=== PATIENT | male | born 1975 | race Caucasian/White ===

== ENCOUNTER 2021-07-17 10:43 | Emergency (ER) | payer OTHER ==
--- NOTE | 2021-07-17 11:26 | ER ---
Nurse's Notes [facility] Name: Hair Portillo Age: 46 yrs Sex: Male : 1975 Arrival Date: 07/17/2021 Time: 10:45 Bed 2 Private MD: Diagnosis: Other specified arthritis, left knee Presentation: 07/17 10:54 Chief complaint: Patient states: 'Gout flare up' in Left knee began last night. Left vg1 knee appears to be swollen. Coronavirus screen: Vaccine status: Patient reports receiving the 2nd dose of the covid vaccine. Client denies travel out of the [place] in the last 14 days. Ebola Screen: Patient negative for fever greater than or equal to 101.5 degrees Fahrenheit, and additional compatible Ebola Virus Disease symptoms. Initial Sepsis Screen: Does the patient meet any 2 criteria? No. Patient's initial sepsis screen is negative. Does the patient have a suspected source of infection? No. Patient's initial sepsis screen is negative. Risk Assessment: Do you want to hurt yourself or someone else? Patient reports no desire to harm self or others. Onset of symptoms was July 16, 2021. 10:54 Method Of Arrival: Wheelchair vg1 10:54 Acuity: SERGO 3 vg1 Triage Assessment: 10:55 General: Appears in no apparent distress. uncomfortable, Behavior is calm, cooperative. vg1 Pain: Complains of pain in left knee Pain currently is 9 out of 10 on a pain scale. Historical: - Allergies: 10:55 No Known Allergies; vg1 - Home Meds: 10:55 None [Active]; vg1 - PMHx: 10:55 Gout; Hypertensive disorder; vg1 - PSHx: 10:55 Hernia Repair; vg1 - Immunization history:: Client reports receiving the 2nd dose of the Covid vaccine. - Social history:: Smoking status: Patient denies any tobacco usage or history of. Patient/guardian denies using alcohol, street drugs, The patient lives with family. - Family history:: not pertinent. Screenin:08 Abuse screen: Denies threats or abuse. Denies injuries from another. Nutritional jl7 screening: No deficits noted. Tuberculosis screening: No symptoms or risk factors identified. 11:56 Fall Risk None identified. jl7 Assessment: 11:08 General: Appears in no apparent distress. uncomfortable, Behavior is calm, cooperative, jl7 appropriate for age. Pain: Complains of pain in left knee Pain currently is 9 out of 10 on a pain scale. Pain began 2-3 days ago. Is continuous. Neuro: Level of Consciousness is awake, alert, obeys commands, Oriented to person, place, time, situation. Cardiovascular: Patient's skin is warm and dry. Respiratory: Airway is patent Respiratory effort is even, unlabored, Respiratory pattern is regular, symmetrical. Derm: Skin is pink, warm \T\ dry. Musculoskeletal: Swelling present in left knee. Vital Signs: 10:54 BP 150 / 108; Pulse 79; Resp 16; Pulse Ox 100% ; Weight 83.91 kg; Height 6 ft. 0 in. vg1 (182.88 cm); Pain 9/10; 10:54 Body Mass Index 25.09 (83.91 kg, 182.88 cm) vg1 ED Course: 10:45 Patient arrived in ED. mr 10:54 Asha Addison MD is Attending Physician. md2 10:55 Triage completed. vg1 10:55 Arm band placed on. vg1 11:01 Brisa Hathaway, RN is Primary Nurse. jl7 11:04 Brisa Hathaway, JUVENAL is Primary Nurse. jl7 11:08 Patient has correct armband on for positive identification. Bed in low position. Call jl7 light in reach. Side rails up X 1. Pulse ox on. NIBP on. 11:55 No provider procedures requiring assistance completed. Patient did not have IV access jl7 during this emergency room visit. Administered Medications: 11:45 Drug: Ketorolac 60 mg Route: IM; Site: right vastus lateralis; jl7 11:55 Follow up: Response: No adverse reaction; Medication administered at discharge. jl7 11:45 Drug: MethylPREDNISolone Sodium Succinate 125 mg Route: IM; Site: left vastus lateralis;jl7 11:55 Follow up: Response: No adverse reaction; Medication administered at discharge. jl7 11:50 Drug: Colchicine-Probenecid 2 tabs Route: PO; jl7 11:55 Follow up: Response: Medication administered at discharge. jl7 11:53 Not Given (Other Intervention Used): Colchicine-Probenecid 2 tabs PO once jl7 Outcome: 11:26 Discharge ordered by . ma2 11:55 Discharged to home ambulatory, with family. jl7 11:55 Condition: stable 11:55 Discharge instructions given to patient, Instructed on discharge instructions, follow up and referral plans. medication usage, Demonstrated understanding of instructions, follow-up care, medications, Prescriptions given X 2. 11:56 Patient left the ED. jl7 Signatures: Melissa GriffithalBrisa RN RN jl7 Asha Addison MD MD ma2 Fransisca Henderson RN RN vg1
--- NOTE | 2021-07-17 11:26 | EDPHYS ---
Physician Documentation [facility] Name: Hair Portillo Age: 46 yrs Sex: Male : 1975 Arrival Date: 07/17/2021 Time: 10:45 Bed 2 Private MD: ED Physician Asha Addison HPI: 07/17 11:22 This 46 yrs old Male presents to ER via Wheelchair with complaints of Gout, Knee Pain. ma2 11:22 The patient presents with decreased range of motion, pain. Onset: The symptoms/episode ma2 began/occurred gradually, 1 day(s) ago. Associated signs and symptoms: Pertinent negatives numbness, vomiting, warmth. Severity of symptoms: At their worst the symptoms were moderate, in the emergency department the symptoms are unchanged. The patient has experienced similar episodes in the past, And has been diagnosed with gout, multiple flareup in left knee and great toe, over the last 3 years, here with left knee pain, arthritis consistent with his prior episode. No fever skin redness, or warmth.. Historical: - Allergies: 10:55 No Known Allergies; vg1 - Home Meds: 10:55 None [Active]; vg1 - PMHx: 10:55 Gout; Hypertensive disorder; vg1 - PSHx: 10:55 Hernia Repair; vg1 - Immunization history:: Client reports receiving the 2nd dose of the Covid vaccine. - Social history:: Smoking status: Patient denies any tobacco usage or history of. Patient/guardian denies using alcohol, street drugs, The patient lives with family. - Family history:: not pertinent. ROS: 11:22 Constitutional: Negative for fever, chills, and weight loss. ma2 11:22 All other systems are negative. Exam: 11:22 Constitutional: This is a well developed, well nourished patient who is awake, alert, ma2 and in no acute distress. Neck: Trachea midline, no thyromegaly or masses palpated, and no cervical lymphadenopathy. Supple, full range of motion without nuchal rigidity, or vertebral point tenderness. No Meningismus. Chest/axilla: Normal chest wall appearance and motion. Nontender with no deformity. No lesions are appreciated. Cardiovascular: Regular rate and rhythm with a normal S1 and S2. No gallops, murmurs, or rubs. Normal PMI, no JVD. No pulse deficits. Respiratory: Lungs have equal breath sounds bilaterally, clear to auscultation and percussion. No rales, rhonchi or wheezes noted. No increased work of breathing, no retractions or nasal flaring. Abdomen/GI: Soft, non-tender, with normal bowel sounds. No distension or tympany. No guarding or rebound. No evidence of tenderness throughout. Skin: Warm, dry with normal turgor. Normal color with no rashes, no lesions, and no evidence of cellulitis. MS/ Extremity: Left knee arthritis, with mild effusion, no redness warmth, no tenderness. Otherwise pulses equal, no cyanosis. Neurovascular intact. Full, normal range of motion. Neuro: Awake and alert, GCS 15, oriented to person, place, time, and situation. Cranial nerves II-XII grossly intact. Motor strength 5/5 in all extremities. Sensory grossly intact. Cerebellar exam normal. Normal gait. Vital Signs: 10:54 BP 150 / 108; Pulse 79; Resp 16; Pulse Ox 100% ; Weight 83.91 kg; Height 6 ft. 0 in. vg1 (182.88 cm); Pain 9/10; 10:54 Body Mass Index 25.09 (83.91 kg, 182.88 cm) vg1 MDM: 10:54 Patient medically screened. ma2 11:22 Differential diagnosis: contusion, tendonitis, arthritis, likley gout arthriti, no ma2 septic knee. Data reviewed: vital signs, nurses notes. Counseling: I had a detailed discussion with the patient and/or guardian regarding: the historical points, exam findings, and any diagnostic results supporting the discharge/admit diagnosis, the presence of at least one elevated blood pressure reading (>120/80) during this emergency department visit, the need for outpatient follow up. Response to treatment: the patient's symptoms have markedly improved after treatment. Administered Medications: 11:45 Drug: Ketorolac 60 mg Route: IM; Site: right vastus lateralis; jl7 11:55 Follow up: Response: No adverse reaction; Medication administered at discharge. jl7 11:45 Drug: MethylPREDNISolone Sodium Succinate 125 mg Route: IM; Site: left vastus lateralis;jl7 11:55 Follow up: Response: No adverse reaction; Medication administered at discharge. jl7 11:50 Drug: Colchicine-Probenecid 2 tabs Route: PO; jl7 11:55 Follow up: Response: Medication administered at discharge. jl7 11:53 Not Given (Other Intervention Used): Colchicine-Probenecid 2 tabs PO once jl7 Disposition Summary: 07/17/21 11:26 Discharge Ordered Location: Home ma2 Condition: Stable ma2 Diagnosis - Other specified arthritis, left knee ma2 Followup: ma2 - With: Private Physician - When: Tomorrow - Reason: If symptoms return, Continuance of care Discharge Instructions: - Discharge Summary Sheet ma2 - Arthritis ma2 - Gout, [id number] ma2 Forms: - Medication Reconciliation Form ma2 - Thank You Letter ma2 - Antibiotic Education ma2 - Prescription Opioid Use ma2 Prescriptions: - colchicine 0.6 mg Oral tablet - take 1 tablet by ORAL route 2 times per day; 60 tablet; Refills: 0, Product ma2 Selection Permitted - Medrol (David) 4 mg Oral Tablets, Dose Pack - take 1 tablet by ORAL route as directed - follow package instructions; 1 ma2 packet; Refills: 0, Product Selection Permitted Signatures: Brisa Hathaway RN RN jl7 Asha Addison MD MD ma2 Fransisca Henderson RN RN vg1
[2021-07-17] MEDS ORDERED: METHYLPREDNISOLONE 125 MG INJ ONE (11:27)
[2021-07-17] MEDS ORDERED: COLCHICINE 0.6 MG TAB ONE (11:27)
[2021-07-17] MEDS ORDERED: KETOROLAC 30 MG/ML INJ ONE (11:27)
[2021-07-17 12:06] VITALS: BP 150/108; O2SAT 100
== END 2021-07-17 11:56 | disposition home or self-care (01) ==
LOC: ER 10:43
DX: M13.862 Other specified arthritis, left knee (principal); I10 Essential (primary) hypertension
CPT/HCPCS: 96372; 99283; J2930